=== PATIENT | male | born 1995 | race Caucasian/White ===

== ENCOUNTER 2019-07-09 08:08 | Outpatient (CLI) | payer BC ==
--- NOTE | 2019-07-09 08:59 | ULT ---
RENAL ULTRASOUND: INDICATION: History of urinary tract infections. FINDINGS: No focal renal lesion or hydronephrosis is evident. The bladder is largely decompressed. The right kidney measured 9.5 x 4.4 x 5.5 cm. The left kidney measures 9.5 x 4.8 x 4.9 cm. Prevoid bladder volume is 6.1 cc. IMPRESSION: No focal renal lesion or hydronephrosis. POS: [facility]
== END 2019-07-09 08:09 | disposition home or self-care (01) ==
LOC: SCSULT 08:08
PROVIDERS: ATTEND Family Medicine
DX: R39.9 Unspecified symptoms and signs involving the genitourinary system (principal)
CPT/HCPCS: 76770